=== PATIENT | male | born 1955 | race Caucasian/White ===

== ENCOUNTER → 2018-05-25 | Outpatient (CLI) | payer OTHER ==
--- NOTE | 2018-05-25 12:17 | ECHOF ---
Referral Reason:I48.92 Unspecified atrial flutter MEASUREMENTS -------- HEIGHT: 172.7 cm WEIGHT: 80.7 kg BP: 112/73 RVIDd: 2.9 cm (< 3.3) IVSd: 1.3 cm (0.6 - 1.1) LVIDd: 4.5 cm (3.9 - 5.3) LVPWd: 1.1 cm (0.6 - 1.1) IVSs: 1.8 cm LVIDs: 2.8 cm LVPWs: 1.6 cm LA Diam: 3.3 cm (2.7 - 3.8) LAESV Index (A-L): 21.37 ml/m Ao Diam: 3.5 cm (2.0 - 3.7) AV Cusp: 2.3 cm (1.5 - 2.6) MV EXCURSION: 19.089 mm (> 18.000) MV EF SLOPE: 61 mm/s (70 - 150) EPSS: 0.3 cm MV E Jc: 0.64 m/s MV DecT: 302 ms MV A Jc: 0.86 m/s MV E/A Ratio: 0.75 FINDINGS -------- Sinus rhythm. This was a technically adequate study. The left ventricular size is normal. There is mild concentric left ventricular hypertrophy. Overa ll left ventricular systolic function is normal with, an EF between 55 - 60 %. The right ventricle is normal in size. Normal LA size by volume 22+/-6 ml/m2. The right atrium is normal in size. The aortic valve is trileaflet and appears structurally normal. The mitral valve is normal. The tricuspid valve appears structurally normal. There is no pulmonic regurgitation present. The aortic root size is normal. Normal inferior vena cava with normal inspiratory collapse consistent with estimated right atrial pre ssure of 5 mmHg. There is no pericardial effusion. CONCLUSIONS -------- 1. Sinus rhythm. 2. This was a technically adequate study. 3. The left ventricular size is normal. 4. There is mild concentric left ventricular hypertrophy. 5. Overall left ventricular systolic function is normal with, an EF between 55 - 60 %. 6. The right ventricle is normal in size. 7. Normal LA size by volume 22+/-6 ml/m2. 8. The right atrium is normal in size. 9. The aortic valve is trileaflet and appears structurally normal. 10. The mitral valve is normal. 11. The tricuspid valve appears structurally normal. 12. There is no pulmonic regurgitation present. 13. The aortic root size is normal. 14. Normal inferior vena cava with normal inspiratory collapse consistent with estimated right atrial pressure of 5 mmHg. 15. There is no pericardial effusion. IN STORE REPRESENTATIVE: Zoila Cabrera RDCS
--- NOTE | 2018-05-25 14:27 | EST ---
EXERCISE STRESS AGE: 62 SEX: M HT: 68 WT: 178 PROTOCOL: Kai STAGE: II DURATION OF EXERCISE: 5:30 HEART RATE REST: 74 BLOOD PRESSURE REST: 112/73 MAXIMUM HEART RATE ACHIEVED: 124 MAXIMUM BLOOD PRESSURE: 145/62 85% MPHR: 135 100% MPHR: 159 METS: 7.1 INDICATIONS: Atrial fibrillation. CLINICAL INFORMATION: Baseline EKG revealed normal sinus rhythm with poor R-wave progression over precordial leads which may be related to lead placement. Patient walked for 5.5 minutes on standard Kai protocol. He started off with a sinus rhythm, went into atrial fibrillation with a rate of nearly 138 beats per minute. Then went back into sinus rhythm. EKG remained unremarkable without ST-segment changes, but when he went into atrial fib, ST changes were noted. These are nonspecific findings. However, at the end of the stress test again he was in a sinus rhythm at 87 beats per minute. No EKG changes of significance were noted. IMPRESSION: 1. Limited exercise capacity. 2. Paroxysmal atrial fibrillation was seen during the stress, but started and ended with sinus rhythm. 3. No evidence of ischemia. 4. The patient may benefit from a Holter monitor to assess the heart rate range and frequency of atrial fibrillation. 5. He may also benefit from a stress test if ischemia is suspected. MMODL / IJN: [id number] /
== END | disposition home or self-care (01) ==
LOC: RADNMMAIN 10:55
PROVIDERS: ATTEND Family Medicine
DX: I48.0 Paroxysmal atrial fibrillation (principal); I51.7 Cardiomegaly; I48.92 Unspecified atrial flutter
CPT/HCPCS: 93017; 93306

== ENCOUNTER → 2018-06-12 | Outpatient (CLI) | payer OTHER ==
--- NOTE | 2018-06-12 15:27 | US ---
EXAMINATION TYPE: US carotid duplex BILAT DATE OF EXAM: 06/12/2018 COMPARISON: NONE CLINICAL HISTORY: 62-year-old male I48.91 Unspecified atrial fibrillation. TECHNIQUE: Carotid duplex ultrasound examination. Indirect Doppler criteria was utilized. FINDINGS: EXAM MEASUREMENTS: RIGHT: Peak Systolic Velocity (PSV) cm/sec ----- Right CCA: 55.2 ----- Right ICA: 63.4 ----- Right ECA: 103.1 ICA/CCA ratio: 1.1 RIGHT: End Diastole cm/sec ----- Right CCA: 17.7 ----- Right ICA: 22.7 ----- Right ECA: 11.2 LEFT: Peak Systolic Velocity (PSV) cm/sec ----- Left CCA: 90.7 ----- Left ICA: 72.1 ----- Left ECA: 123.3 ICA/CCA ratio: 0.8 LEFT: End Diastole cm/sec ----- Left CCA: 20.6 ----- Left ICA: 32.5 ----- Left ECA: 15.0 VERTEBRALS (direction of flow): Right Vertebral: Antegrade Left Vertebral: Antegrade Rhythm: Arrhythmia Posterior soft plaque in the left mid CCA, 1.8 x x0.3x 0.4 cm IMPRESSION: 1. No hemodynamically significant stenosis appreciated in either internal carotid artery. 2. A 1.8 cm long segment of soft plaque along the mid left CCA does not cause any significant narrowi ng. Criteria for Assigning % of Stenosis / Diameter reduction (Estimation based on the indirect measurements of the internal carotid artery velocities (ICA PSV). 1. Normal (no stenosis)=ICA PSV < 125 cm/s: ratio < 2.0: ICA EDV<40 cm/s. 2. Less than 50% stenosis=ICA PSV < 125 cm/s: ratio < 2.0: ICA EDV<40 cm/s. 3. 50 to 69% stenosis=ICA PSV of 125 to 230 cm/s: ration 2.0 ? 4.0: ICA EDV 40-100 cm/s. 4. Greater than 70% stenosis to near occlusion= ICA PSV > 230 cm/s: ratio > 4.0: ICA EDV > 100 cm/s. 5. Near occlusion= ICA PSV velocities may be low or undetectable: variable ratio and ICA EDV. 6. Total occlusion=unable to detect flow.
== END | disposition home or self-care (01) ==
LOC: RADUSWWP 13:36
PROVIDERS: ATTEND Family Medicine
DX: I65.22 Occlusion and stenosis of left carotid artery (principal); I48.91 Unspecified atrial fibrillation
CPT/HCPCS: 93880

== ENCOUNTER → 2018-06-16 | Outpatient (CLI) | payer OTHER ==
[2018-06-16 08:30] LABS: MCH 32.7 pg (25.0-35.0); MCHC 32.6 g/dL (31.0-37.0); MCV 100.3 fL (80.0-100.0); Mean Platelet Volume 7.6; Platelet Count 280 k/uL (150-450); RBC 5.51 m/uL (4.30-5.90); RDW 13.5 % (11.5-15.5); WBC 12.8 k/uL (3.8-10.6)
[2018-06-16 08:47] LABS: HCT 55.3 % (39.0-53.0)
[2018-06-16 09:04] LABS: ALT 29 U/L (21-72); AST 26 U/L (17-59); Albumin 4.3 g/dL (3.5-5.0); Alkaline Phosphatase 83 U/L (38-126); Anion Gap 9 mmol/L; Blood Urea Nitrogen 11 mg/dL (9-20); Calcium 9.3 mg/dL (8.4-10.2); Carbon Dioxide 20 mmol/L (22-30); Chloride 111 mmol/L (98-107); Cholesterol 186 mg/dL (<200); Glucose 96 mg/dL (74-99); HDL Cholesterol 52 mg/dL (40-60); LDL Cholesterol,Calculated 104 mg/dL (0-99); Potassium 4.9 mmol/L (3.5-5.1); Sodium 140 mmol/L (137-145); Total Bilirubin 1.3 mg/dL (0.2-1.3); Total Protein 6.8 g/dL (6.3-8.2); Triglycerides 149 mg/dL (<150)
== END | disposition home or self-care (01) ==
LOC: LABWHC1 07:32
PROVIDERS: ATTEND Internal Medicine Interventional Cardiology
DX: E78.2 Mixed hyperlipidemia (principal)
CPT/HCPCS: 36415; 80053; 80061; 84443; 85027

== ENCOUNTER → 2018-07-18 | Day surgery (SDC) | payer OTHER ==
[2018-07-13 14:29] VITALS: BMI 25.1
[~2018-07-18] MED LIST: LACTATED RINGERS 1,000 ML IV SCH; LIDOCAINE 1% 20 ML VIAL (10MG/ML) FOR IV START INTRADERMA PRN; LIDOCAINE 1% INJ 10MG/ML (20 ML MDV) ONE; MIDAZOLAM 2 MG/2 ML VIAL IV PRN; PROPOFOL 10 MG/ML 20 ML VIAL IV ONE
[2018-07-18 07:23] VITALS: RESP 16; TEMP 97.8
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
--- NOTE | 2018-07-18 08:26 | P.OP ---
Date of Procedure: 07/18/18 Preoperative Diagnosis: History of rectal polyp Postoperative Diagnosis: Normal colonoscopy Procedure(s) Performed: Colonoscopy Anesthesia: MAC Pathology: none sent Condition: stable ([facility]) Disposition: PACU Description of Procedure: PROCEDURE: The patient was placed on the endoscopy table in the lateral position. Digital rectal examination was performed which revealed no abnormalities. The prostate was symmetrical without nodules. Flexible colonoscope was then placed in the patient's anus and passed throughout the entire colon. The ileocecal valve was visualized. The cecum, ascending, transverse, descending and sigmoid colon were normal. The rectum was normal as well. There were no masses, polyps or diverticula noted in the entire colon. S
[2018-07-18 08:35] VITALS: BP 90/66; PULSE 75
== END | disposition home or self-care (01) ==
LOC: ORWHC2ENDO 07:08
PROVIDERS: ATTEND Surgery
DX: K21.9 Gastro-esophageal reflux disease without esophagitis (principal); I10 Essential (primary) hypertension; F17.210 Nicotine dependence, cigarettes, uncomplicated; M19.90 Unspecified osteoarthritis, unspecified site; Z86.010 Personal history of colon polyps; Z79.899 Other long term (current) drug therapy; Z79.01 Long term (current) use of anticoagulants
CPT/HCPCS: 45378; J2001; J2704

== ENCOUNTER → 2018-07-25 | Outpatient (CLI) | payer OTHER ==
--- NOTE | 2018-07-25 21:59 | CONS ---
CONSULTATION REFERRING PHYSICIAN: Dr. Fernandez. REASON FOR CONSULTATION: Suspected sleep apnea. A 62-year-old male patient, currently being treated for chronic atrial fibrillation, referred to the sleep center due to concerns of sleep apnea. He is a chronic smoker, smokes 2 packs of cigarettes a day. He is a chronic drinker, drinks between 5-7 beers a day. He has history of loud snoring, occasional apneas and on a few instances, he was noted to wake up gasping for air. He goes to bed between 10:00 p.m. and midnight and he wakes up at 7:00 am in the morning, averaging about 7 hours of sleep. No major hypersomnia or sleepiness during the day. Hoople score is at 7. His sleep is fragmented on and off. He wakes up in the middle of the night. He sleeps on his side. No sleep paralysis. No hallucinations. No cataplexy. No recent weight gain. No nocturnal palpitations, chest pain or shortness of breath. He has occasional nocturnal heartburn. PAST MEDICAL HISTORY: A. fib., chronic; hypertension. SURGICAL HISTORY: Ankle surgery, bilateral knee and right knee surgery and right the left inguinal hernia repair. DRUG ALLERGIES: Not known. OUTPATIENT MEDICATION LIST: Includes: 1. Norvasc. 2. Savaysa and. 3. Flecainide. SOCIAL HISTORY: Drinks coffee 5-7 cups a day. Note, he is a chronic smoker 2 packs a day, chronic drinker. No history of IV drugs. FAMILY HISTORY: Negative for sleep apnea. REVIEW OF SYSTEMS: A 12-point review of systems was done. Positive findings are mentioned above in history of present illness. BP is 139/74, pulse 86, respirations 16, temperature 98.4, saturation 95% on room air. Weight is 176, height is 5 feet 7 inches, Hoople score is at 7. Neck size is 16-3/4 inches. BMI is 27.1. GENERAL APPEARANCE: Calm, comfortable. HEENT: Atraumatic, normocephalic. Neck is supple, short. Crowding of the posterior pharynx. Mallampati class IV. LUNGS: Diminished breath sounds. HEART: Sounds are irregular, S1 and S2. No significant murmurs appreciated. ABDOMEN: Soft, nontender. No organomegaly. EXTREMITIES: No edema. No cyanosis or clubbing. IMPRESSION: 1. Suspected obstructive sleep apnea based on snoring and occasional apnea. 2. Chronic atrial fibrillation. 3. Chronic fatigue, Hoople score is at 7. 4. Alcoholism. 5. Smoker. PLAN: 1. Home sleep study to evaluate this patient for sleep breathing disorder. 2. Smoking cessation counseling. 3. Cut down alcohol intake. 4. Sleep in a sidewise body position. 5. Issues related to sleep hygiene were discussed. 6. Will continue to follow. MMODL / IJN: [id number] /
== END | disposition home or self-care (01) ==
LOC: SLEEP 16:28
PROVIDERS: ATTEND Internal Medicine Critical Care Medicine
DX: G47.30 Sleep apnea, unspecified (principal); R06.83 Snoring; R53.83 Other fatigue; I48.91 Unspecified atrial fibrillation; F17.200 Nicotine dependence, unspecified, uncomplicated; F10.20 Alcohol dependence, uncomplicated; Z79.899 Other long term (current) drug therapy
CPT/HCPCS: 99211

== ENCOUNTER → 2019-12-18 | Outpatient (CLI) | payer OTHER ==
--- NOTE | 2019-12-18 09:32 | US ---
EXAMINATION TYPE: US prostate transrectal DATE OF EXAM: 12/18/2019 COMPARISON: NONE CLINICAL HISTORY: R97.2 Elevated prostate specific antigen [PSA]. patient states PSA went from 5 to 7 , no official PSA level sent from office, increases in urination, steady stream This examination was performed using the transrectal probe. EXAM MEASUREMENTS: Gland Size: 4.1 x 4.0 x 3.7cm Volume: 31.1ml Heterogeneous PZ with no focal area of concern seen at this time. Initial images show seminal vesicles appear within normal limits. Prostate gland is mildly enlarged a nd heterogeneous in appearance with central calcifications and occasional thin-walled cyst. No suspic ious hypoechoic nodule or bulging of the capsule identified. IMPRESSION: Mildly enlarged prostate gland consistent with BPH. PSA elevated relative to predicted P SA. Advise urology referral. Consider imaging guided random sampling or prostate MRI to further evalu ate. Predicted PSA = volume x 0.12 ng/ml Calculated Volume = 0.5236 x L x W x H
== END | disposition home or self-care (01) ==
LOC: RADUSMAIN 07:46
PROVIDERS: ATTEND Family Medicine
DX: N40.0 Benign prostatic hyperplasia without lower urinary tract symptoms (principal)
CPT/HCPCS: 76872

== ENCOUNTER 2020-12-15 10:39 | Day surgery (SDC) | payer OTHER ==
[2020-12-09 14:46] VITALS: BMI 28.7
[~2020-12-15 10:39] MED LIST changes: -LIDOCAINE 1% 20 ML VIAL (10MG/ML) FOR IV START INTRADERMA PRN; -LIDOCAINE 1% INJ 10MG/ML (20 ML MDV) ONE; -MIDAZOLAM 2 MG/2 ML VIAL IV PRN; -PROPOFOL 10 MG/ML 20 ML VIAL IV ONE; +SODIUM CHLORIDE 0.9% 1,000 ML IV SCH
[2020-12-15 11:13] LABS: Basophils # (A) 0.1 k/uL (0-0.2); Basophils % (A) 1 %; Eosinophils # (A) 0.2 k/uL (0-0.7); Eosinophils % (A) 2 %; HCT 49.5 % (39.0-53.0); HGB 16.6 gm/dL (13.0-17.5); Lymphocytes # (A) 1.9 k/uL (1.0-4.8); Lymphocytes % (A) 20 %; MCH 31.3 pg (25.0-35.0); MCHC 33.4 g/dL (31.0-37.0); MCV 93.7 fL (80.0-100.0); Mean Platelet Volume 7.8; Monocytes # (A) 0.7 k/uL (0-1.0); Monocytes % (A) 7 %; Neutrophils # (A) 6.7 k/uL (1.3-7.7); Neutrophils % (A) 69 %; Platelet Count 275 k/uL (150-450); RBC 5.29 m/uL (4.30-5.90); WBC 9.7 k/uL (3.8-10.6)
[2020-12-15 11:26] LABS: African American GFR (CKD) >90 (>60 ml/min/1.73 sqM); Anion Gap 9 mmol/L; Blood Urea Nitrogen 19 mg/dL (9-20); Calcium 9.1 mg/dL (8.4-10.2); Carbon Dioxide 22 mmol/L (22-30); Chloride 109 mmol/L (98-107); Glucose 111 mg/dL (74-99); Non-African American GFR(CKD) >90 (>60 ml/min/1.73 sqM); Sodium 140 mmol/L (137-145)
[2020-12-15 11:29] LABS: Potassium 5.1 mmol/L (3.5-5.1)
[2020-12-15] MEDS ORDERED: DEXAMETHASONE SOD PHOSPHATE 4 MG/ML 1 ML VIAL ONE (13:21)
[2020-12-15] MEDS ORDERED: ISOPROTERENOL 250 MCG/1.25 ML SYR IV ONE (13:21)
[2020-12-15] MEDS ORDERED: fentaNYL (PF) 50 MCG/ML 2 ML AMP ONE (13:21)
[2020-12-15] MEDS ORDERED: PHENYLEPHRINE 10 MG/ML VIAL ONE (13:21)
[2020-12-15] MEDS ORDERED: ADENOSINE 3 MG/ML 2 ML VIAL IVP ONE (13:21)
[2020-12-15] MEDS ORDERED: SUCCINYLCHOLINE CHLORIDE 100 MG/5 ML SYR IV ONE (13:21)
[2020-12-15] MEDS ORDERED: HEPARIN SODIUM,PORCINE 10,000 UNIT/ML 1 ML VIAL ONE (13:21)
[2020-12-15] MEDS ORDERED: MIDAZOLAM 2 MG/2 ML VIAL ONE (13:21)
[2020-12-15] MEDS ORDERED: ONDANSETRON 4 MG/2 ML VIAL ONE (13:21)
[2020-12-15] MEDS ORDERED: PROPOFOL 10 MG/ML 20 ML VIAL IV ONE (13:21)
[2020-12-15] MEDS ORDERED: LIDOCAINE 1% INJ 10MG/ML (20 ML MDV) ONE (13:21)
[2020-12-15] MEDS ORDERED: PROTAMINE SULFATE 10 MG/ML 5 ML VIAL IV ONE ×2 (13:21→15:55)
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
[2020-12-15] MEDS ORDERED: LIDOCAINE 1% INJ 10MG/ML (20 ML MDV) SQ ONE (14:06)
[2020-12-15] MEDS ORDERED: ACETAMINOPHEN TAB 325 MG TAB PO PRN (15:58)
--- NOTE | 2020-12-15 16:17 | P.EPPROC ---
- EP Procedure Note Electrophysiology Procedure Note: Procedure A. fib ablation, pulmonary vein isolation, cryoablation Diagnosis Atrial fibrillation, symptomatic, refractory to therapy Paroxysmal Result No left atrial appendage mass seen on intracardiac echo Successful A. fib ablation/pulmonary vein isolation of all veins using cryo-ablation Complete entrance block in all 4 veins confirmed No evidence for phrenic nerve injury Residual atrial tachycardia, cycle length 240 1 ms, induced with burst stimulation from the Stuart sinus Esophageal deflection YES Electrical cardioversion with a synchronized shock across the chest YES Procedure details Patient was brought to the EP lab in a fasting state. Written informed consent was obtained prior to the procedure. Procedure performed under general anesthesia After initial muscle relaxant use, muscle relaxants were not given thereafter in order to assess phrenic nerve during procedure. Patient prepped and draped as per protocol Full cryo-set up with standard preparation of the cryoablation tools done. Femoral Venous access obtained on the right and left groins Venous and arterial Sheaths placed. Diagnostic catheters for the high right atrium, phrenic nerve stimulation and pacing, His bundle, RV and coronary sinus placed Intracardiac echo catheter placed. Long sheath placed in the right atrium Left and right transseptal catheterization performed under intracardiac echo guidance. Intravenous heparin with aCT above 300 Later, catheter positioning and balloon positioning in the left atrium, under intracardiac echo guidance Diagnostic EP study with Drug infusion Coronary sinus pacing and recording Baseline measurements Sinus cycle length 828 ms, FL interval 156 mg seconds, QRS 99 ms and QT interval 390 ms AH 88, HV 45 Atrial pacing performed from the high right atrium and the coronary sinus Sinus node recovery times at 600, 504 100 ms were 1156, 1143 and 1001 ms. Corrected sinus recovery times were within normal limits AV node Wenckebach block 420 ms Burst stimulation from the Stuart sinus Atrial tachycardia induced Transseptal catheterization performed RA pressure 21/12/16 LA pressure 24/12/18 Transseptal catheterization performed with standard sheath. The cryoablation sheath was then placed with an over the wire exchange without any acute comp lications. All 4 pulmonary veins were isolated in the following sequence: Left superior followed by left inferior followed by right superior followed by right inferior The cryo-ablation balloon was placed at the os of each vein 1.5 mL of IV dye was injected to confirm an occluded vein Goal during cryoablation was to achieve complete occlusion of the pulmonary vein, achieve -30 degrees C at 30 seconds and achieve -40 degrees C at 60 seconds and a time to effect of less than 60-90 seconds, . If not the balloon was repositioned to obtain this result After completion of Cryoblation with durations from 180-240 seconds, entrance block was confirmed with the Attain circular catheter in a roving fashion around the antrum of the pulmonary veins Phrenic nerve pacing was performed from the SVC, right innominate vein area and diaphragm voltage was monitored. Diaphragmatic contractions were also monitored manually for strength of contraction. Parameter goals for each cryo freeze Complete occlusion of the appropriate vein -30 degrees C by 30 seconds -40 degrees C by 60 seconds Minimum between minus 40-55 degrees C Thaw time greater than 10 seconds Balloon visualized by intracardiac echo The esophagus was intubated. Esophageal Temperature monitoring with a CIRCA catheter formed. Esophageal deflection for hypothermia of the esophagus below 30 degrees C Left superior pulmonary vein Complete isolation, entrance block Left inferior pulmonary vein Complete isolation, entrance block Right superior pulmonary vein, during phrenic nerve pacing Complete isolation, entrance block Right inferior pulmonary vein, during phrenic nerve pacing Complete isolation, entrance block At the end of the procedure the Achieve catheter was once again used to check for entrance block Phrenic nerve stimulation was performed to confirm diaphragmatic stimulation the end of the procedure Cine fluoroscopy was performed at the very end of the procedure to confirm movement of both diaphragms with inspiration and expiration At the end of the procedure the patient was extubated Heparin was reversed Venous sheaths were removed and hemostasis assured Procedures performed (PVI - CRYO Ablation) Diagnostic EP study CS pacing and recording Left and right transseptal catheterization Catheter the mapping of the tachycardia (NOT 3D mapping) Intracardiac echocardiography Pulmonary vein isolation with transseptal and comprehensive EPS, [id number] Electrical cardioversion with a synchronized shock across the chest [id number] Drug Infusion [id number]
--- NOTE | 2020-12-15 16:19 | P.PRLE ---
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 He will continue anticoagulation but I will start flecainide now and we will follow Dr. Fernandez and you as before Thank you for entrusting me with the care of the patient Warm regards Sincerely Jude Mosley
[2020-12-15] MEDS ORDERED: ACETAMINOPHEN IV (For NPO) 1,000 MG in EMPTY BAG 1 BAG IVPB ONE (16:30)
[2020-12-15] MEDS: APIXABAN 5 MG TAB PO SCH (21:38)
[2020-12-16] MEDS: HYDROcodone/APAP 5-325MG 1 EACH TAB PO PRN ×2 (03:47→09:57)
[2020-12-16] MEDS ORDERED: PANTOPRAZOLE 40 MG TABLET PO SCH (07:30)
[2020-12-16] MEDS ORDERED: amLODIPine 10 MG TAB PO SCH (09:00)
[2020-12-16 09:55] VITALS: BP 145/102; PULSE 86; RESP 16; TEMP 97.6
[2020-12-16] MEDS: APIXABAN 5 MG TAB PO SCH (09:57)
== END 2020-12-16 13:13 | disposition home or self-care (01) ==
LOC: CATHEP 10:39 → 1SOBS 16:04 → CATHEP 12-16 13:13
PROVIDERS: ATTEND Internal Medicine Clinical Cardiac Electrophysiology
DX: I48.0 Paroxysmal atrial fibrillation (principal); I10 Essential (primary) hypertension; K21.9 Gastro-esophageal reflux disease without esophagitis; M19.90 Unspecified osteoarthritis, unspecified site; G47.30 Sleep apnea, unspecified; Z85.46 Personal history of malignant neoplasm of prostate; F17.290 Nicotine dependence, other tobacco product, uncomplicated; Z98.890 Other specified postprocedural states; Z98.42 Cataract extraction status, left eye; Z98.41 Cataract extraction status, right eye; Z90.79 Acquired absence of other genital organ(s); K00.0 Anodontia; Z79.01 Long term (current) use of anticoagulants; Z79.899 Other long term (current) drug therapy
CPT/HCPCS: 85347; 92960; 93623; 93662; 93609; 93656; 80048; 85025; C1759; C1769 ×4; C1894 ×2; C1730 ×3; C1893; C1733; C1766; J2001; J0131